=== PATIENT | male | born 1975 | race Caucasian/White ===

== ENCOUNTER 2016-09-21 10:48 | Emergency (ER) | payer SELFPAY ==
--- NOTE | 2016-09-29 21:19 | ER ---
ADMIT: 09/21/2016 RM/LOC: ER [facility] MR#: [id number] [address] [id number] TAD RUSHING [facility] [place] [address] Emergency Room Report SEX: M AGE: 41 : 1975 DATE: 09/21/2016 ADDENDUM: COMPLAINT: Shortness of breath and back pain. HISTORY OF PRESENT ILLNESS: This is a 41-year-old male, who just had two children who were positive for influenza. He had the same symptoms with fever, chills. These symptoms started about few ago. He said this morning he coughed super hard and developed this left-sided scapular pain, rates at a 7/10. PAST MEDICAL HISTORY: None. MEDICATIONS: None. ALLERGIES: NO KNOWN ALLERGIES. SOCIAL HISTORY: Denies any drug use, but does drink alcohol occasionally, and smokes occasionally. FAMILY HISTORY: Noncontributory. REVIEW OF SYSTEMS: CONSTITUTIONAL: He did have a recent illness probably influenza, but was not tested for it. He did have a fever last week but that has resolved. CARDIORESPIRATORY: Really, actually when asked him about shortness of breath, he denies any shortness of breath. Denies shortness of breath with exertion. He just says the pain just takes his breath away. Again, at the posterior scapula. GI and : Denies any abdominal pain or dysuria. All systems otherwise negative. PHYSICAL EXAMINATION: VITAL SIGNS: Blood pressure is 154/93, pulse is 74, respirations 18, temperature is 96.2 tympanic, oxygen saturation is 93% to 95% on room air. GENERAL APPEARANCE: The patient no acute distress. Alert. HEENT: Pharynx is moist. No tonsillar swelling or exudate. NECK: Supple. HEART: Regular rate and rhythm. LUNGS: CTA bilaterally. No wheezes, rales, or rhonchi. Again, sats are 93% ADMIT: 09/21/2016 RM/LOC: ER [facility] MR#: [id number] [address] [place] [id number] TAD RUSHING [address] [place] [address] Emergency Room Report SEX: M AGE: 41 : 1975 to 95% on room air. ABDOMEN: Soft, nontender. SKIN: Normal color, warm, and dry. No rashes noted. NEURO AND PSYCH: He is alert and oriented x3. Mood and affect normal. COURSE IN THE EMERGENCY ROOM: Influenza and chest x-ray was done. Chest x- ray, over-read by Dr. Loja as negative for any acute findings. Told him to take ibuprofen for pain. If he develops any kind or shortness of breath. He is to return to the ER. CLINICAL IMPRESSION: Posterior scapular pain secondary to upper respiratory infection. RICARDO Olivares / Fracisco Loja MD / marcellal JOB #: [id number] CC: Fracisco Loja MD, Attending Physician Levy Green MD, Family Physician
== END 2016-09-21 13:10 | disposition home or self-care (01) ==
LOC: ER 10:48
DX: M25.512 Pain in left shoulder (principal); J06.9 Acute upper respiratory infection, unspecified; F17.210 Nicotine dependence, cigarettes, uncomplicated